=== PATIENT | female | born 1990 | race African-American/Black ===

== ENCOUNTER 2022-03-16 06:15 | Inpatient (IN) | payer MEDICAID, OTHER ==
[~2022-03-16] VITALS: Ht 157.5 cm; Wt 108.9 kg
[2022-03-16] MEDS ORDERED: PREN1TAB78 PO (07:04)
[2022-03-16] MEDS ORDERED: FERR-71 PO (07:04)
[2022-03-16] MEDS ORDERED: LIDOCAINE HCL 1% 20ML VIAL (Pyxis) INJ INFIL SCH (07:15)
[2022-03-16] MEDS ORDERED: METHYLERGONOVINE MALEATE 0.2 MG/ML IM PRN (07:15)
[2022-03-16] MEDS ORDERED: BUTORPHANOL TARTRATE 2 MG/ML VIAL IV PRN (07:15)
[2022-03-16] MEDS ORDERED: NALOXONE HCL 0.4 MG/ML 1ML VIAL IM PRN (07:15)
[2022-03-16] MEDS ORDERED: OXYTOCIN 30 UNITS/500ML NS PMX 500 ML IV SCH ×2 (07:15→21:15)
[2022-03-16] MEDS ORDERED: PENICILLIN G POTASSIUM 5 MMU in DEXT 5% WATER 100 ML IV SCH (07:15)
[2022-03-16] MEDS: LACTATED RINGERS 1,000 ML IV SCH ×3 (07:41→15:35)
[2022-03-16] MEDS: KETOROLAC 30MG/ML VIAL IV SCH (09:00)
[2022-03-16 09:21] LABS: BASOPHILS % 0.7 % (0.0-2.0); EOSINOPHILS % 0.5 % (0.0-5.0); HEMATOCRIT. 36.4 % (36.0-48.0); LYMPHOCYTES % 19.9 % (20.0-50.0); MEAN CORPUSCULAR HEMOGLOBIN 30.2 pg (28.0-32.0); MEAN CORPUSCULAR VOLUME 91.9 fL (81.0-99.0); MEAN PLATELET VOLUME 8.4 fl (7.4-10.4); MONOCYTES % 11.2 % (2.0-8.0); NEUTROPHILS % 67.7 % (40.0-76.0); PLATELET 202 x1000/uL (130-400); RED BLOOD CELL COUNT 3.97 mill/uL (4.2-5.4); RED CELL DISTRIBUTION WIDTH 17.7 % (11.6-14.6)
[2022-03-16 09:32] LABS: CHLORIDE 110 mEq/L (98-107)
[2022-03-16 09:44] LABS: INR 0.9; PARTIAL THROMBOPLASTIN TIME 30.4 sec (23.4-31.0); PROTHROMBIN TIME 9.9 sec (9.6-11.0)
[2022-03-16] MEDS ORDERED: OXYTOCIN 30 UNITS/500ML NS PMX 500 ML IV PRN ×3 (10:30→14:30)
[2022-03-16] MEDS ORDERED: ROPIVACAINE HCL/PF EPIDURAL 200 ML EPI SCH (11:15)
[2022-03-16] MEDS ORDERED: ROPIVACAINE HCL/PF EPIDURAL 200 ML EPI ONE (11:22)
[2022-03-16 12:42] LABS: CLARITY URINE CLEAR (CLEAR); COLOR URINE YELLOW (YELLOW); KETONES URINE TRACE (NEGATIVE); LEUKOCYTE ESTERASE URINE NEGATIVE (NEGATIVE); NITRITE URINE NEGATIVE (NEGATIVE); OCCULT BLOOD URINE NEGATIVE (NEGATIVE); PROTEIN URINE NEGATIVE (NEGATIVE); SPECIFIC GRAVITY URINE 1.012 (1.005-1.030); UROBILINOGEN URINE 0.2 E.U./dL (0.2-1.0)
[2022-03-16 13:07] LABS: *AMPHETAMINES SCREEN URINE NEGATIVE (NEGATIVE); *BARBITURATES SCREEN URINE NEGATIVE (NEGATIVE); *BENZODIAZEPINES SCREEN URINE NEGATIVE (NEGATIVE); *COCAINE SCREEN URINE NEGATIVE (NEGATIVE); CANNABINOID URINE SCREEN NEGATIVE (NEGATIVE); METHADONE URINE SCREEN NEGATIVE (NEGATIVE); OPIATES URINE SCREEN NEGATIVE (NEGATIVE); PHENCYCLIDINE URINE SCREEN NEGATIVE (NEGATIVE)
[2022-03-16] MEDS: PENICILLIN G POTASSIUM 2.5 MMU in DEXTROSE 5% WATER 50 ML IV SCH ×2 (14:20→15:30)
[2022-03-16 14:51] LABS: HEPATITIS B SURFACE ANTIGEN NEGATIVE
[2022-03-16] MEDS ORDERED: CEFAZOLIN SODIUM 1000MG/VIAL ONE (19:19)
[2022-03-16] MEDS ORDERED: MORPHINE SULFATE/PF 1MG/ML 10ML AMP ONE (19:19)
[2022-03-16] MEDS ORDERED: LIDOCAINE HCL 2%/EPINEPHRINE 1:100,000 20 ML VIAL INFIL ONE (19:19)
[2022-03-16] MEDS ORDERED: FENTANYL CITRATE/PF 50MCG/ML 2ML VIAL IV PRN (20:00)
[2022-03-16] MEDS ORDERED: MORPHINE SULFATE 2 MG/ML CPJ (NOT FOR IM USE) IV PRN (20:00)
[2022-03-16] MEDS ORDERED: NALOXONE HCL 0.4 MG/ML 1ML VIAL IV PRN (20:00)
[2022-03-16] MEDS ORDERED: KETOROLAC 30MG/ML VIAL IM PRN (20:00)
[2022-03-16] MEDS ORDERED: ONDANSETRON HCL 4MG/2ML INJ ONE (20:06)
[2022-03-16] MEDS ORDERED: KETOROLAC 60MG/2ML VIAL IM ONE (20:06)
[2022-03-16] MEDS ORDERED: DEXAMETHASONE 4MG/ML 1ML VIAL ONE (20:06)
[2022-03-16] MEDS ORDERED: IBUPROFEN 400MG TABLET PO PRN (21:15)
[2022-03-16] MEDS ORDERED: ONDANSETRON HCL 4MG/2ML INJ IV PRN (21:15)
[2022-03-16] MEDS ORDERED: RHO(D) IMMUNE GLOBULIN 300 MCG/SYR IM PRN (21:15)
[2022-03-16] MEDS ORDERED: DIPHENHYDRAMINE 25MG CAPSULE PO PRN (21:15)
[2022-03-16] MEDS ORDERED: LANOLIN OINT 7GM TUBE TOP PRN (21:15)
[2022-03-16 22:50] VITALS: BP 120/79
[2022-03-16 23:20] VITALS: BP 129/73
[2022-03-16 23:50] VITALS: BP 123/74
[2022-03-17] MEDS: LACTATED RINGERS 1,000 ML IV SCH (02:05)
[2022-03-17 04:00] VITALS: BP 117/75
[2022-03-17 06:23] LABS: HEMATOCRIT. 31.8 % (36.0-48.0); HEMOGLOBIN. 10.5 g/dL (12.0-16.0); MEAN CORPUSCULAR HEMOGLOBIN 30.5 pg (28.0-32.0); MEAN CORPUSCULAR VOLUME 92.3 fL (81.0-99.0); MEAN PLATELET VOLUME 8.5 fl (7.4-10.4); PLATELET 184 x1000/uL (130-400); RED BLOOD CELL COUNT 3.44 mill/uL (4.2-5.4); RED CELL DISTRIBUTION WIDTH 17.3 % (11.6-14.6)
[2022-03-17 08:00] VITALS: BP 106/61
[2022-03-17 08:11] LABS: HIV SCREEN 4G Non Reactive (Non Reactive)
[2022-03-17 16:30] VITALS: BP 115/65
[2022-03-17] MEDS: PRENATAL VIT/FE FUMARATE/FA TABLET PO SCH (17:09)
[2022-03-17] MEDS: KETOROLAC 30MG/ML VIAL IV SCH (17:09)
[2022-03-17] MEDS: DOCUSATE SODIUM 100MG CAPSULE PO SCH (20:38)
[2022-03-17 20:49] LABS: PLATELET ESTIMATE NORMAL
[2022-03-17 21:09] VITALS: BP 119/78
[2022-03-18] MEDS: HYDROCODONE/ACETAMINOPHEN 5/325MG TABLET PO PRN ×3 (03:58→14:17)
[2022-03-18 08:00] VITALS: BP 119/65
[2022-03-18] MEDS: PRENATAL VIT/FE FUMARATE/FA TABLET PO SCH (09:50)
[2022-03-18 12:40] VITALS: BP 130/76
[2022-03-18 16:00] VITALS: BP 117/68
[2022-03-18 20:00] VITALS: BP 140/86
[2022-03-19 01:00] VITALS: BP 118/79
[2022-03-19] MEDS: HYDROCODONE/ACETAMINOPHEN 5/325MG TABLET PO PRN ×2 (01:09→09:02)
[2022-03-19] MEDS: DOCUSATE SODIUM 100MG CAPSULE PO SCH (01:11)
[2022-03-19] MEDS ORDERED: BISACODYL 10MG SUPP PR NR (07:00)
[2022-03-19 07:45] VITALS: BP 140/92
[2022-03-19] MEDS: PRENATAL VIT/FE FUMARATE/FA TABLET PO SCH (09:01)
== END 2022-03-19 14:00 | disposition home or self-care (01) | DRG 540 ==
LOC: 8 EST LDRP 06:15 → OBSVTOIN 06:15 → 8EST 23:05
PROVIDERS: ADMIT Specialist; ATTEND Specialist
PROC: 10D00Z1 Extraction of Products of Conception, Low, Open Approach (ICD-10-PCS; principal; 2022-03-16)
DX: O44.03 Complete placenta previa NOS or without hemorrhage, third trimester (principal); D62 Acute posthemorrhagic anemia; O99.214 Obesity complicating childbirth; Z20.822 Contact with and (suspected) exposure to COVID-19; O34.211 Maternal care for low transverse scar from previous cesarean delivery; Z3A.38 38 weeks gestation of pregnancy; Z37.0 Single live birth; O90.81 Anemia of the puerperium
CPT/HCPCS: 36415; 76805; 76818; 80053; 80305; 81003; 85025; 86592; 86762; 86850; 86900; 86920; 87340; 87389; 87426; 88307; 99281; J0595; J0690; J1100; J1885; J2274; J2405; J2540; J2795; J3490; J7060; J7120; J2590

== ENCOUNTER 2022-05-25 10:25 | Emergency (ER) | payer MEDICAID ==
[~2022-05-25] VITALS: Ht 170.2 cm; Wt 91.0 kg
[~2022-05-25 10:25] MED LIST: FERR-71 PO; PREN1TAB78 PO
[2022-05-25] MEDS ORDERED: ONDANSETRON HCL 4MG/2ML INJ IV STA (10:35)
[2022-05-25] MEDS ORDERED: KETOROLAC 30MG/ML VIAL IV STA (10:35)
[2022-05-25 11:33] LABS: BASOPHILS % 0.3 % (0.0-2.0); EOSINOPHILS % 0.3 % (0.0-5.0); HEMATOCRIT. 41.4 % (36.0-48.0); HEMOGLOBIN. 13.9 g/dL (12.0-16.0); LYMPHOCYTES % 18.5 % (20.0-50.0); MEAN CORPUSCULAR HEMOGLOBIN 30.8 pg (28.0-32.0); MEAN CORPUSCULAR VOLUME 91.7 fL (81.0-99.0); MEAN PLATELET VOLUME 7.8 fl (7.4-10.4); NEUTROPHILS % 76.9 % (40.0-76.0); PLATELET 236 x1000/uL (130-400); RED BLOOD CELL COUNT 4.52 mill/uL (4.2-5.4)
[2022-05-25 11:36] LABS: CHLORIDE 105 mEq/L (98-107)
[2022-05-25 11:38] LABS: CLARITY URINE CLOUDY (CLEAR); COLOR URINE YELLOW (YELLOW); KETONES URINE NEGATIVE (NEGATIVE); LEUKOCYTE ESTERASE URINE NEGATIVE (NEGATIVE); NITRITE URINE NEGATIVE (NEGATIVE); OCCULT BLOOD URINE NEGATIVE (NEGATIVE); PH URINE >=9.0 (4.5-8.0); PROTEIN URINE NEGATIVE (NEGATIVE); SPECIFIC GRAVITY URINE 1.014 (1.005-1.030); UROBILINOGEN URINE 0.2 E.U./dL (0.2-1.0)
[2022-05-25 11:40] LABS: PROTHROMBIN TIME 10.3 sec (9.6-11.0)
[2022-05-25 12:02] LABS: HCG SCREEN NEGATIVE
[2022-05-25] MEDS ORDERED: TOPUD PO (12:45)
[2022-05-25 13:38] VITALS: BP 150/90
== END 2022-05-25 13:50 | disposition home or self-care (01) ==
LOC: ER 10:25
DX: N93.9 Abnormal uterine and vaginal bleeding, unspecified (principal); R10.84 Generalized abdominal pain
CPT/HCPCS: 36415; 74176; 80053; 81003; 81025; 83690; 84703; 85025; 85610; 96374; 96375; 99285; J1885; J2405; Z7610